=== PATIENT | female | born 1945 | race Caucasian/White ===

== ENCOUNTER 2018-08-12 09:54 | Inpatient (IN) ==
[2018-08-12] MEDS ORDERED: 0.9 % Sodium Chloride 500 ML IVC ONE ×2 (10:06→12:01)
--- NOTE | 2018-08-12 10:28 | Emergency Department Note ---
Disposition Clinical Impression: Weakness, Dehydration, Compression fx, thoracic spine, Fall Disposition: Admitted As Inpatient Condition: Fair Back Pain HPI - General Chief Complaint: ED Back Pain/Injury Stated Complaint: FELL, BACK & NECK PAIN Time Seen by Provider: 08/12/18 09:55 Source: patient Mode of arrival: EMS Limitations: no limitations Nursing Notes Reviewed: Yes Vital Signs Reviewed: Yes - History of Present Illness HPI Narrative: Patient reportedly fell this morning injuring her back head and neck. Upon EMSs arrival her blood pressure was low. She complains back and head pain. She was seen about a week ago in the emergency department and was restarted on his psych medicines. Pt Subjective Complaint: back pain, back injury, fall Onset (ago): Just [employer] Duration: constant Location: lumbar spine, thoracic spine, Other Quality: sharp Radiation: none Improves with: none Worsens with: movement Associated symptoms: Reports: weakness - Related Data Home Medications Medication Instructions Recorded Confirmed Aspirin 81 mg PO DAILY 05/29/15 08/12/18 Levothyroxine [Synthroid] 100 mcg PO 0630 05/29/15 08/12/18 Famotidine [Pepcid] 20 mg PO BID 08/08/18 08/12/18 Gabapentin [Neurontin] 800 mg PO TID 08/08/18 08/12/18 Glimepiride [Amaryl] 4 mg PO BID 08/08/18 08/12/18 Lisinopril [Zestril] 5 mg PO DAILY 08/08/18 08/12/18 Metoprolol Succinate 25 mg PO DAILY 08/08/18 08/12/18 metFORMIN [Glucophage] 1,000 mg PO BIDWM 08/08/18 08/12/18 Bydureon 2 mg SQ QWEEK 08/12/18 08/12/18 Insulin Glargine,Hum.rec.anlog 15 unit SQ HS 08/12/18 08/12/18 [Lantus Solostar] Meloxicam [Mobic] 7.5 mg PO DAILY 08/12/18 08/12/18 OLANZapine [Zyprexa] 15 mg PO DAILY 08/12/18 08/12/18 Venlafaxine HCl [Venlafaxine HCl 75 mg PO DAILY 08/12/18 08/12/18 ER] Previous Rx's Medication Instructions Recorded Mirtazapine [Remeron] 15 mg PO HS #30 tablet 03/31/16 Allergies Allergy/AdvReac Type Severity Reaction Status Date / Time Sulfa (Sulfonamide Allergy Hives Verified 04/11/16 15:37 Antibiotics) All systems ED: reviewed and negative except as stated. Review of Systems: As Per HPI Constitutional: Denies: fever, chills, weakness, weight change Eyes: Denies: eye pain, eye discharge, vision change ENT ED: Denies: ear pain, throat pain, dental pain, hearing loss, epistaxis, congestion, dysphagia Cardiovascular: Denies: chest pain, palpitations, dyspnea on exertion, edema, syncope Respiratory: Denies: cough, dyspnea, wheezes, hemoptysis, stridor Gastrointestinal: Denies: abdominal pain, nausea, vomiting, diarrhea, constipation, hematemesis, melena, hematochezia Genitourinary: Denies: dysuria, frequency, hematuria, discharge Musculoskeletal: Reports: as per HPI, back pain, neck pain Integumentary: Denies: rash, abrasion, lesions Neurological: Denies: headache, weakness, numbness, paresthesias, confusion, abnormal gait, vertigo Psychiatric: Denies: anxiety, depression, suicidal thoughts, homicidal thoughts, auditory hallucinations, visual hallucinations Endocrine: Denies: fatigue Hematological/Lymphatic: Denies: easy bleeding, easy bruising Allergic/Immunologic: Denies: facial swelling, urticaria Past Medical History - Past Medical History Attestation: Yes The following information was validated with the patient. Source: patient, nursing notes reviewed Medical history: Reports: coronary artery disease, diabetes, hyperlipidemia, hypertension, renal disease, thyroid disease Surgical history: Reports: breast surgery, cholecystectomy, hysterectomy, orthopedic, other (Neck surgery) Psychiatric history: Reports: anxiety, depression, previous psychiatric hospital ization - Social History Smoking Status: Never smoker Smokeless Tobacco Status: No Alcohol use: Reports: none Drug use: Reports: none Physical Exam - General Limitations: no limitations General appearance: alert, in no apparent distress - Head Head exam: atraumatic, normocephalic, normal inspection - Eye Eye exam: Present: normal appearance, PERRL, EOMI - ENT ENT exam: normal exam, normal oropharynx, mucous membranes moist - Neck Neck exam: Present: normal inspection, tenderness (Diffusely tender) - Chest Chest inspection: Present: normal inspection, symmetric chest wall rise - Respiratory Respiratory exam: Present: normal lung sounds bilaterally - Cardiovascular Cardiovascular exam: Present: regular rate, normal rhythm, normal heart sounds - Abdominal Exam Abdominal exam: Present: soft, Non-Tender - Extremities Exam Extremities exam: Present: normal inspection - Back Exam Back exam: Present: tenderness (Diffusely tender low back. Small abrasion is noted to the left scapular region) - Neurological Exam Neurological exam: Present: alert, oriented X3 - Psychiatric Psychiatric exam: Present: normal affect, normal mood - Skin Skin exam: Present: warm, dry, intact Course Vital Signs O2 Sat by Pulse Oximetry 95 08/12/18 09:55 Temperature 97.9 F 08/12/18 12:52 Pulse Rate 70 08/12/18 12:52 Respiratory Rate 16 08/12/18 12:52 Blood Pressure 81/43 08/12/18 12:52 O2 Sat by Pulse Oximetry 95 08/12/18 12:52 Oxygen Delivery Oxygen Delivery Nasal Cannula Back Pain/Injury - MDM Narrative Medical decision making narrative: I reviewed the patient's medication list Case was discussed with Dr. Darnell who is graciously accepted admission. - Lab Data Lab results reviewed: Yes I reviewed the patient's lab results. Result diagrams: 08/12/18 10:40 08/12/18 10:40 Lab Results 08/12/18 08/12/18 08/12/18 Range/Units 10:40 10:40 10:40 WBC 17.2 H (4.3-11.1) K/mcL RBC 4.35 (3.82-4.97) M/mcL Hgb 13.5 (11.5-15.4) g/dL Hct 41.8 (35.3-44.9) % MCV 96.1 (83.0-100.0) fL MCH 31.0 (28.0-33.3) pg MCHC 32.3 (31.6-35.5) g/dL RDW 12.7 (11.5-14.5) % Plt Count 308 (140-400) K/mcL MPV 10.1 (9.4-12.4) fL Immature Gran % 0.8 (0-4) % Seg Neutrophils % 80.9 % Lymphocytes % 8.5 % Monocytes % 8.3 % Eosinophils % 1.3 % Basophils % 0.2 % Neutrophils # 13.9 H (1.6-8.9) K/mcL Lymphocytes # 1.5 (0.6-4.6) K/mcL Monocytes # 1.4 H (0.0-1.3) K/mcL Eosinophils # 0.2 (0.0-0.6) K/mcL Basophils # 0.0 (0.0-0.2) K/mcL Clumped Platelets Few A (Not Present) ABG pH (7.32-7.45) pH Units ABG pCO2 (35-45) mmHg ABG pO2 (85-104) mmHg ABG HCO3 (21-27) mEq/L ABG Total CO2 (20-26) mEq/L ABG O2 Saturation (95-98) % ABG Base Excess (-2 to 3) mEq/L VBG pH VBG pCO2 VBG pO2 VBG HCO3 O2 Delivery Device Inspired O2 (1-15=lpm [id number]=%) Sodium 134 L (136-145) mEq/L Potassium 6.0 H (3.5-5.1) mEq/L Chloride 112 H (98-107) mEq/L Carbon Dioxide 10 L* (23-29) mEq/L BUN 49 H (8-23) mg/dL Creatinine 2.57 H (0.60-1.20) mg/dL Est GFR ( Amer) 22 L (> 60) Est GFR (Non-Af Amer) 18 L (> 60) BUN/Creatinine Ratio 19 (6-26) Glucose 101 (70-105) mg/dL Calculated Osmolality 291 (280-300) Lactic Acid 0.8 (0.5-2.2) mmol/L Calcium 8.4 L (8.6-10.3) mg/dL Total Bilirubin 0.3 (0.3-1.0) mg/dL AST 37 (13-39) Units/L ALT 24 (7-52) Units/L Alkaline Phosphatase 105 H (34-104) Units/L Troponin I < 0.03 (< 0.04) ng/mL Serum Total Protein 6.5 (6.4-8.9) g/dL Albumin 3.3 L (3.5-5.7) g/dL Globulin 3.2 (2.4-3.5) g/dL Albumin/Globulin Ratio 1.0 L (1.1-2.2) Urine Color (Yellow) Urine Clarity (Clear) Urine pH (5.0-8.0) pH Units Ur Specific [place] (1.010-1.025) Urine Protein (Neg-Trace) mg/dL Urine Glucose (UA) (Normal) mg/dL Urine Ketones (Negative) mg/dL Urine Blood (Negative) Urine Nitrite (Negative) Urine Bilirubin (Negative) Urine Urobilinogen (Normal) mg/dL Ur Leukocyte Esterase (Negative) Urine Microscopic WBC (0-3) per hpf Ur Squamous Epith Cells (None-Few) per lpf Urine Bacteria (None-Few) per hpf Hyaline Casts (None-Few) per lpf Granular Casts (None Seen) per lpf Urine Mucus (Few) Ur Culture Indicated? (NO) 08/12/18 08/12/18 08/12/18 Range/Units 10:45 10:53 11:50 WBC (4.3-11.1) K/mcL RBC (3.82-4.97) M/mcL Hgb (11.5-15.4) g/dL Hct (35.3-44.9) % MCV (83.0-100.0) fL MCH (28.0-33.3) pg MCHC (31.6-35.5) g/dL RDW (11.5-14.5) % Plt Count (140-400) K/mcL MPV (9.4-12.4) fL Immature Gran % (0-4) % Seg Neutrophils % % Lymphocytes % % Monocytes % % Eosinophils % % Basophils % % Neutrophils # (1.6-8.9) K/mcL Lymphocytes # (0.6-4.6) K/mcL Monocytes # (0.0-1.3) K/mcL Eosinophils # (0.0-0.6) K/mcL Basophils # (0.0-0.2) K/mcL Clumped Platelets (Not Present) ABG pH 7.26 L (7.32-7.45) pH Units ABG pCO2 39 (35-45) mmHg ABG pO2 90 (85-104) mmHg ABG HCO3 18 L (21-27) mEq/L ABG Total CO2 19 L (20-26) mEq/L ABG O2 Saturation 96 (95-98) % ABG Base Excess -9 L (-2 to 3) mEq/L VBG pH TNP VBG pCO2 TNP VBG pO2 TNP VBG HCO3 TNP O2 Delivery Device [place] Inspired O2 24.0 TNP (1-15=lpm [id number]=%) Sodium (136-145) mEq/L Potassium (3.5-5.1) mEq/L Chloride (98-107) mEq/L Carbon Dioxide (23-29) mEq/L BUN (8-23) mg/dL Creatinine (0.60-1.20) mg/dL Est GFR ( Amer) (> 60) Est GFR (Non-Af Amer) (> 60) BUN/Creatinine Ratio (6-26) Glucose (70-105) mg/dL Calculated Osmolality (280-300) Lactic Acid (0.5-2.2) mmol/L Calcium (8.6-10.3) mg/dL Total Bilirubin (0.3-1.0) mg/dL AST (13-39) Units/L ALT (7-52) Units/L Alkaline Phosphatase (34-104) Units/L Troponin I (< 0.04) ng/mL Serum Total Protein (6.4-8.9) g/dL Albumin (3.5-5.7) g/dL Globulin (2.4-3.5) g/dL Albumin/Globulin Ratio (1.1-2.2) Urine Color Yellow (Yellow) Urine Clarity Slightly Cloudy A (Clear) Urine pH 5.0 (5.0-8.0) pH Units Ur Specific [place] >= 1.030 H (1.010-1.025) Urine Protein 100 H (Neg-Trace) mg/dL Urine Glucose (UA) Normal (Normal) mg/dL Urine Ketones Trace H (Negative) mg/dL Urine Blood Negative (Negative) Urine Nitrite Negative (Negative) Urine Bilirubin Small H (Negative) Urine Urobilinogen Normal (Normal) mg/dL Ur Leukocyte Esterase Negative (Negative) Urine Microscopic WBC 0-3 (0-3) per hpf Ur Squamous Epith Cells Few (None-Few) per lpf Urine Bacteria Moderate H (None-Few) per hpf Hyaline Casts Moderate H (None-Few) per lpf Granular Casts Few H (None Seen) per lpf Urine Mucus Few (Few) Ur Culture Indicated? NO (NO) - Radiology Data Radiology results reviewed: Yes I reviewed the patient's radiology results. - EKG Data EKG attestation: Yes I reviewed and interpreted this EKG. EKG results narrative: EKG by my read shows a normal sinus rhythm without acute ST or T-wave changes. Rate is 68 bpm. NV interval 133 ms. QRS duration 94 ms. QT interval 408 QTc interval 426 ms R axis of 36 degrees.
[2018-08-12 10:51] LABS: Basophils % 0.2 %; Eosinophils # 0.2 K/mcL (0.0-0.6); Eosinophils % 1.3 %; Hematocrit 41.8 % (35.3-44.9); Hemoglobin 13.5 g/dL (11.5-15.4); Immature Granulocytes % 0.8 % (0-4); Lymphocytes # 1.5 K/mcL (0.6-4.6); Lymphocytes % 8.5 %; Mean Corpuscular HGB Conc 32.3 g/dL (31.6-35.5); Mean Corpuscular Volume 96.1 fL (83.0-100.0); Mean Platelet Volume 10.1 fL (9.4-12.4); Monocytes # 1.4 K/mcL (0.0-1.3); Monocytes % 8.3 %; Neutrophils # 13.9 K/mcL (1.6-8.9); Platelet Count 308 K/mcL (140-400); Red Blood Count 4.35 M/mcL (3.82-4.97); Red Cell Distribution Width 12.7 % (11.5-14.5); Segmented Neutrophils % 80.9 %
[2018-08-12 11:10] LABS: Platelet Clumps Few (Not Present)
[2018-08-12 11:22] LABS: Alanine Aminotransferase 24 Units/L (7-52); Albumin 3.3 g/dL (3.5-5.7); Alkaline Phosphatase 105 Units/L (34-104); Aspartate Amino Transferase 37 Units/L (13-39); BUN/Creatinine Ratio 19 (6-26); Bilirubin,Total 0.3 mg/dL (0.3-1.0); Blood Urea Nitrogen 49 mg/dL (8-23); Calcium 8.4 mg/dL (8.6-10.3); Carbon Dioxide 10 mEq/L (23-29); Chloride 112 mEq/L (98-107); Globulin 3.2 g/dL (2.4-3.5); Glucose 101 mg/dL (70-105); Osmolality,Calculated 291 (280-300); Sodium 134 mEq/L (136-145); Total Protein 6.5 g/dL (6.4-8.9); Troponin I < 0.03 ng/mL (< 0.04); eGFR For Non-African Americans 18 (> 60)
[2018-08-12 11:38] LABS: ABG HCO3 18 mEq/L (21-27); ABG PCO2 39 mmHg (35-45); ABG PH 7.26 pH Units (7.32-7.45); ABG PO2 90 mmHg (85-104)
[2018-08-12 11:43] LABS: ABG Base Excess -9 mEq/L (-2 to 3); ABG Oxygen Saturation 96 % (95-98); ABG TCO2 19 mEq/L (20-26)
[2018-08-12 11:58] LABS: Bilirubin,Urine Small (Negative); Blood,Urine Negative (Negative); Clarity,Urine Slightly Cloudy (Clear); Color,Urine Yellow (Yellow); Glucose,Urine (UA) Normal (Normal); Ketones,Urine Trace mg/dL (Negative); Leukocyte Esterase,Urine Negative (Negative); Nitrite,Urine Negative (Negative); Protein,Urine 100 mg/dL (Neg-Trace); Specific Gravity,Urine >= 1.030 (1.010-1.025); Urobilinogen,Urine Normal (Normal)
[2018-08-12 12:07] LABS: Granular Casts,Urine Few per lpf (None Seen); Mucus,Urine Few (Few); Squamous Epithelial Cell,Urine Few per lpf (None-Few); WBC,Urine 0-3 per hpf (0-3)
[2018-08-12 12:08] LABS: Bacteria,Urine Moderate per hpf (None-Few); Hyaline Casts,Urine Moderate per lpf (None-Few)
[2018-08-12] MEDS ORDERED: Naloxone 0.4 MG/ML INJ IVP PRN (12:52)
[2018-08-12] MEDS ORDERED: 0.9 % Sodium Chloride 1,000 ML IVC SCH (12:52)
[2018-08-12] MEDS: Gabapentin 400 MG CAPSULE PO SCH ×2 (14:48→20:42)
--- NOTE | 2018-08-12 14:55 | Electrocardiograph Report ---
[address] [address] Test Date: 2018-08-12 Pat Name: Aubree Fraire Department: [id number] Room: [facility] Gender: F Supervisor Intelligence Analyst: [id number] : 1945 Requested By: Alan Call Order Number: [id number] Reading MD: Malcolm Luis Measurements Intervals [place] Rate: 68 P: 0 CT: 133 QRS: 36 QRSD: 94 T: 34 QT: 408 QTc: 426 Interpretive Statements SINUS RHYTHM Electronically Signed On 08-12-2018 14:53:23 EST by Malcolm Luis
[2018-08-12] MEDS ORDERED: *HR* Dextrose 50 % in Water (Syg) 50 ML SYRINGE IVP PRN (16:41)
[2018-08-12] MEDS ORDERED: Dextrose Gel 15 GM/37.5 ML TUBE PO PRN ×2 (16:41)
[2018-08-12] MEDS ORDERED: D5% in Water 1,000 ML IVC PRN (16:41)
[2018-08-12] MEDS: Insulin LISPRO 300 UNITS/3 ML VIAL SQ SCH ×2 (16:56→20:43)
[2018-08-12] MEDS ORDERED: *HR* Metformin 500 MG TABLET PO SCH (17:00)
--- NOTE | 2018-08-12 19:19 | Internal Med History&Physical ---
Date of Encounter: 08/12/18 Time of Encounter: 17:30 Assessment and Plan (1) Acute renal failure Current visit: Yes Status: Acute Suspect multifactorial etiology including dehydration, NSAID use, and lisinopril use. IV fluids will be given, lisinopril and Mobic discontinued, and follow-up labs monitored. Qualifiers: Acute renal failure type: unspecified Qualified Code(s): N17.9 - Acute kidney failure, unspecified (2) Hyperkalemia Current visit: Yes Status: Acute Hold lisinopril and NSAIDs. Recheck labs. (3) Neutrophilic leukocytosis Current visit: Yes Status: Acute Etiology not obvious. She will be given a dose of Rocephin and Zithromax. Follow-up labs in a.m. (4) DM (diabetes mellitus), type 2 Current visit: No Status: Chronic Check hemoglobin A1c in a.m. Qualifiers: Diabetes mellitus counter supervisor insulin use: without fdc use Diabetes mellitus complication status: without complication Qualified Code(s): E11.9 - Type 2 diabetes mellitus without complications (5) Hypothyroidism Current visit: No Status: Chronic Check TSH in a.m. Qualifiers: Hypothyroidism type: unspecified Qualified Code(s): E03.9 - Hypothyroidism, unspecified (6) Depression, major, recurrent, severe with psychosis Current visit: No Status: Chronic Continue Effexor and Zyprexa (7) Compression fx, thoracic spine Current visit: Yes Status: Acute Lidoderm and BenGay will be ordered topically. Scheduled Tylenol will be given. Ultram will be available on a prn basis. Qualifiers: Encounter type: initial encounter Fracture type: closed Qualified Code(s): S22.000A - Wedge compression fracture of unspecified thoracic vertebra, initial encounter for closed fracture (8) Fall Current visit: Yes Status: Acute PT and OT evaluation will be done Qualifiers: Encounter type: initial encounter Qualified Code(s): W19.XXXA - Unspecified fall, initial encounter Internal Medicine - H&P: HPI Chief complaint: Fall, back pain Admitted From: Emergency Dept Plans for Post Hospital Care: Home History of present illness: Ms. Fraire is a 73 year old female who came to emergency room stating she had sustained a fall at home. She reports she tripped and hit her head on a cabinet and slid to the floor. She had immediate pain in her back. She was brought by EMS to emergency room. X-ray showed traumatic compression fracture of T12 involving the superior endplate resulting in approximately 10% of anterior height loss. She also had leukocytosis with left shift, hyperkalemia, and acute renal failure. She was admitted to [facility] for ongoing care needs. She states she has fallen approximately 10 times in the last month at home due to weakness and balance loss. She denies orthostatic symptoms when arising from a seated position. She states she typically ambulates with a walker. She also reports frequent chills and sweats over the last 2 years. Past Med Surg Social Fam HX - Past Medical History Medical history: coronary artery disease, diabetes, hyperlipidemia, hypertension, renal disease, thyroid disease Additional medical history: CHRONIC INSOMNIA, FATIGURE, PE, DVT,FAILURE TO THRIVE. Psychiatric history: anxiety, depression, previous psychiatric hospitalization - Past Surgical History Surgical History: breast surgery, cholecystectomy, hysterectomy, orthopedic, other (Neck surgery) Additional surgical history: breast. neck - Social History Smoking Status: Never smoker Smokeless Tobacco Status: No Alcohol use: none Drug use: none - Family History Mother Family Member Ethnicity: Non- Living Status: Hx Family Cancer: Yes (breast ca) Internal Medicine - H&P: Meds Aspirin 81 mg PO DAILY 05/29/15 [History] Levothyroxine [Synthroid] 100 mcg PO 0630 05/29/15 [History] Mirtazapine [Remeron] 15 mg PO HS #30 tablet 03/31/16 [Rx] Famotidine [Pepcid] 20 mg PO BID 08/08/18 [History] Gabapentin [Neurontin] 800 mg PO TID 08/08/18 [History] Glimepiride [Amaryl] 4 mg PO BID 08/08/18 [History] Lisinopril [Zestril] 5 mg PO DAILY 08/08/18 [History] Metoprolol Succinate 25 mg PO DAILY 08/08/18 [History] metFORMIN [Glucophage] 1,000 mg PO BIDWM 08/08/18 [History] Bydureon 2 mg SQ QWEEK 08/12/18 [History] Insulin Glargine,Hum.rec.anlog [Lantus Solostar] 15 unit SQ HS 08/12/18 [History] Meloxicam [Mobic] 7.5 mg PO DAILY 08/12/18 [History] OLANZapine [Zyprexa] 15 mg PO DAILY 08/12/18 [History] Venlafaxine HCl [Venlafaxine HCl ER] 75 mg PO DAILY 08/12/18 [History] Allergy/AdvReac Type Severity Reaction Status Date / Time Sulfa (Sulfonamide Allergy Hives Verified 04/11/16 15:37 Antibiotics) All Systems PM: A 10-system review of systems was performed and is negative for pertinent findings except as documented above in the HPI. Review of systems: Gen.: Her weight has increased slightly from 92 kg on 03/23/2016 to admission weight of 94.347 kg at present. Cardiovascular: She has history of hypertension. She thinks she has superficial venous thrombosis in the past but cannot clearly state how recently. She had dobutamine stress echo 01/17/2017 which showed normal LVEF 60-65% with no evidence of ischemia. Respiratory: She smoked from age [age] never up to 1 pack per day. She does not have known chronic lung disease. GI: She has occasional GERD. She has had cholecystectomy. She denies disorders of her liver or exocrine pancreas. : She denies hematuria dysuria or kidney stones Neurologic: She states she has had numerous episodes lightheadedness occasionally over the past few months. She has not had complete syncopal epi sodes. She denies large distribution strokes or seizures. Endocrine: She has been diagnosed with DM 2 but cannot state when the diagnosis was made. She has history of hyperlipidemia and hypothyroidism Hematology/oncology: She reports she was diagnosed with uterine cancer within the past year. She states she was treated at [facility] but does not recall what treatment was done. She denies anemia. Psychiatric: She has history of anxiety and depression. She received ECT at [place] several years ago. Musk skeletal: She states she has DJD. She is uncertain if she has history of gout. - Constitutional Vitals: Temp Pulse Resp BP Pulse Ox 97.9 F 70 16 81/43 95 08/12/18 12:52 08/12/18 12:52 08/12/18 12:52 08/12/18 12:52 08/12/18 12:52 Exam: Gen.: She is a well-developed well-nourished female resting comfortably in bed who appears in no acute distress HEENT: Head is atraumatic and normocephalic. Eyes: EOMI. There is no scleral icterus. Mouth: Mucosa is moist. Neck: Supple and nontender. There is no thyromegaly or adenopathy noted. Heart: Regular without murmurs gallops or ectopics Lungs: No wheezes or crackles are heard. Abdomen: Her abdomen is tympanic to percussion. Bowel sounds are present. There is minimal tenderness to palpation. No masses or guarding are noted. Extremities: There is no cyanosis edema or clubbing noted. Trace to 1+ palpable bilaterally. Neurologic: Mental status: She is talkative and a fair historian. She does not remember several details of her history. Cranial nerves: Smile is symmetric. Forehead wrinkles bilaterally. Tongue protrudes midline. EOMI. Motor: There is no pronator drift. Cerebellar: Finger to nose is intact bilaterally. Skin: Warm and dry Internal Med - H&P Results - Labs CBC & Chem 7: 08/12/18 10:40 08/12/18 10:40 Labs: Short CBC 08/12/18 Range/Units 10:40 WBC 17.2 H (4.3-11.1) K/mcL Hgb 13.5 (11.5-15.4) g/dL Hct 41.8 (35.3-44.9) % Plt Count 308 (140-400) K/mcL Neutrophils # 13.9 H (1.6-8.9) K/mcL BMP 08/12/18 10:40 Sodium 134 L Potassium 6.0 H Chloride 112 H Carbon Dioxide 10 L* BUN 49 H Creatinine 2.57 H Glucose 101 Calcium 8.4 L Cardiac Enzymes 08/12/18 08/12/18 Range/Units 10:40 13:10 Troponin I < 0.03 < 0.03 (< 0.04) ng/mL Liver Function 08/12/18 Range/Units 10:40 Total Bilirubin 0.3 (0.3-1.0) mg/dL AST 37 (13-39) Units/L ALT 24 (7-52) Units/L Alkaline Phosphatase 105 H (34-104) Units/L Albumin 3.3 L (3.5-5.7) g/dL Urine 12/05/18 Range/Units 11:50 Urine Color Yellow (Yellow) Urine Clarity Slightly Cloudy A (Clear) Urine pH 5.0 (5.0-8.0) pH Units Ur Specific [place] >= 1.030 H (1.010-1.025) Urine Protein 100 H (Neg-Trace) mg/dL Urine Glucose (UA) Normal (Normal) mg/dL - ABG Interpretation ABG results: 08/12/18 08/12/18 10:45 10:53 ABG pH 7.26 L ABG pCO2 39 ABG pO2 90 ABG HCO3 18 L ABG Total CO2 19 L ABG O2 Saturation 96 ABG Base Excess -9 L VBG pH TNP VBG pCO2 TNP VBG pO2 TNP VBG HCO3 TNP - Impressions ITS Impressions Cervical Spine CT 08/12/18 10:06 IMPRESSION: No acute abnormality of the cervical spine. Postoperative changes and chronic changes as described D/ / Ebenezer Ellis MD / Ebenezer Ellis MD Interpreting Provider: Ebenezer Ellis MD Chest X-Ray 08/12/18 10:06 IMPRESSION: 1. Left base airspace opacity, favored to be atelectasis, with small left pleural effusion. D/ / Nathan Palmer MD / Nathan Palmer MD Interpreting Provider: Nathan Palmer MD Head CT 08/12/18 10:06 IMPRESSION: No acute intracranial abnormality. D/ / Erasmo Rueda MD / Erasmo Rueda MD Interpreting Provider: Erasmo Rueda MD Lumbar Spine CT 08/12/18 10:14 IMPRESSION: Suspected acute fracture involving the superior endplate of T12 with minimal depression noted within the mid and anterior aspect. No retropulsion into the spinal canal identified. No lumbar spine fracture. Multilevel degenerative changes. D/ / Darnell Byrd MD / Darnell Byrd MD Interpreting Provider: Darnell Byrd MD Thoracic Spine CT 08/12/18 10:14 IMPRESSION: Traumatic compression fracture of T12 involving the superior endplate results in approximately 10% of anterior height loss. No evidence of central canal bony retropulsion. D/ / 08/12/2018 11:47:27 Nathan Palmer MD / wicho Interpreting Provider: Nathan Palmer MD
[2018-08-12] MEDS ORDERED: Azithromycin 500 MG in D5% in Water 250 ML IVPB ONE (19:34)
[2018-08-12 20:00] LABS: Calcium 7.8 mg/dL (8.6-10.3)
[2018-08-12] MEDS ORDERED: cefTRIAXone 1,000 MG in Water for inj. (sterile) 20 ML 10 ML IVP SCH (20:00)
[2018-08-12] MEDS: Lactobacillus 1 EACH CAP.SPRINK PO SCH (20:42)
[2018-08-12] MEDS: Mirtazapine 15 MG TABLET PO SCH (20:42)
[2018-08-12] MEDS: Insulin DETEMIR 100 UNIT/ML X5UNITS SQ SCH (20:44)
[2018-08-12] MEDS ORDERED: *HR* Glimepiride 2 MG TABLET PO SCH ×2 (21:00)
[2018-08-13] MEDS: traMADol 50 MG TABLET PO PRN ×3 (03:29→20:48)
[2018-08-13 05:20] LABS: Basophils % 0.2 %; Eosinophils # 0.5 K/mcL (0.0-0.6); Eosinophils % 5.4 %; Hemoglobin 12.6 g/dL (11.5-15.4); Immature Granulocytes % 0.4 % (0-4); Lymphocytes # 1.8 K/mcL (0.6-4.6); Lymphocytes % 18.3 %; Mean Corpuscular HGB Conc 31.5 g/dL (31.6-35.5); Mean Corpuscular Hemoglobin 30.6 pg (28.0-33.3); Mean Corpuscular Volume 97.1 fL (83.0-100.0); Monocytes % 10.1 %; Neutrophils # 6.6 K/mcL (1.6-8.9); Platelet Count 302 K/mcL (140-400); Red Blood Count 4.12 M/mcL (3.82-4.97); Segmented Neutrophils % 65.6 %
[2018-08-13 05:45] LABS: Calcium 8.1 mg/dL (8.6-10.3); Potassium 4.8 mEq/L (3.5-5.1)
[2018-08-13] MEDS: Insulin LISPRO 300 UNITS/3 ML VIAL SQ SCH ×4 (08:00→20:50)
[2018-08-13] MEDS: Lactobacillus 1 EACH CAP.SPRINK PO SCH ×2 (08:32→20:48)
[2018-08-13] MEDS: Gabapentin 400 MG CAPSULE PO SCH ×3 (08:34→20:48)
[2018-08-13] MEDS: OLANZapine 5 MG TAB.RAPDIS PO SCH (08:34)
[2018-08-13] MEDS: Venlafaxine XR (24 HR) 37.5 MG CAP.ER.24H PO SCH (08:35)
[2018-08-13] MEDS ORDERED: Metoprolol XL (24 HR) Succ 25 MG TAB.ER.24H PO SCH (09:00)
[2018-08-13] MEDS ORDERED: Aspirin 81 MG TAB.CHEW PO SCH (09:00)
--- NOTE | 2018-08-13 10:08 | Internal Med Progress Note ---
Date of Encounter: 08/13/18 Time of Encounter: 09:55 - Assessment and plan (1) Acute renal failure Current Visit: Yes Status: Acute Assessment and plan: August 13. Creatinine significantly improved to 1.56. Continue present r egimen. Recheck labs in a.m. Qualifiers: Acute renal failure type: unspecified Qualified Code(s): N17.9 - Acute kidney failure, unspecified (2) Hyperkalemia Current Visit: Yes Status: Resolved Assessment and plan: August 13. Resolved. Continue present regimen and monitor labs. (3) Neutrophilic leukocytosis Current Visit: Yes Status: Acute Assessment and plan: August 13. Resolved. Continue Rocephin and monitor. (4) DM (diabetes mellitus), type 2 Current Visit: No Status: Chronic Assessment and plan: August 13. Hemoglobin A1c pending. Continue Levemir but remain off Glucophage and Amaryl. Continue Accu-Cheks with SSI. Qualifiers: Diabetes mellitus conditioning room worker insulin use: without conditioning room worker use Diabetes mellitus complication status: without complication Qualified Code(s): E11.9 - Type 2 diabetes mellitus without complications (5) Hypothyroidism Current Visit: No Status: Chronic Assessment and plan: August 13. TSH normal at 0.381. Continue present dose Synthroid. Qualifiers: Hypothyroidism type: unspecified Qualified Code(s): E03.9 - Hypothyroidism, unspecified (6) Depression, major, recurrent, severe with psychosis Current Visit: No Status: Chronic Assessment and plan: August 13. Continue venlafaxine and Zyprexa (7) Compression fx, thoracic spine Current Visit: Yes Status: Acute Assessment and plan: August 13. Continue present regimen. Qualifiers: Encounter type: initial encounter Fracture type: closed Qualified Cod e(s): S22.000A - Wedge compression fracture of unspecified thoracic vertebra, initial encounter for closed fracture (8) Fall Current Visit: Yes Status: Acute Assessment and plan: August 13. PT and OT evaluations have been ordered. Qualifiers: Encounter type: initial encounter Qualified Code(s): W19.XXXA - Unspecified fall, initial encounter - Subjective Interval history: August 13. She has no new complaints. She reports she still has pain in her low back and head. - Constitutional Vitals: Temp Pulse Resp BP Pulse Ox 99.2 F 80 28 98/49 96 08/13/18 08:02 08/13/18 08:02 08/13/18 08:02 08/13/18 08:02 08/13/18 08:02 Exam: She is lying in bed and appears in minimal distress. Heart is regular without murmurs gallops or ectopics. Lungs are clear anteriorly. Extremities show no edema. I reviewed her medications and lab results. Internal Medicine: Result - Labs CBC & Chem 7: 08/13/18 04:55 08/13/18 04:55 Labs: Short CBC 08/12/18 08/13/18 Range/Units 10:40 04:55 WBC 17.2 H 10.0 (4.3-11.1) K/mcL Hgb 13.5 12.6 (11.5-15.4) g/dL Hct 41.8 40.0 (35.3-44.9) % Plt Count 308 302 (140-400) K/mcL Neutrophils # 13.9 H 6.6 (1.6-8.9) K/mcL BMP 08/12/18 08/12/18 08/13/18 10:40 19:13 04:55 Sodium 134 L 134 L 136 Potassium 6.0 H 5.0 4.8 Chloride 112 H 113 H 111 H Carbon Dioxide 10 L* 12 L 18 L BUN 49 H 46 H 35 H Creatinine 2.57 H 2.11 H 1.56 H Glucose 101 132 H 90 Calcium 8.4 L 7.8 L 8.1 L Cardiac Enzymes 08/12/18 08/12/18 08/12/18 Range/Units 10:40 13:10 19:13 Troponin I < 0.03 < 0.03 < 0.03 (< 0.04) ng/mL 08/13/18 Range/Units 04:55 Troponin I < 0.03 (< 0.04) ng/mL Liver Function 08/12/18 Range/Units 10:40 Total Bilirubin 0.3 (0.3-1.0) mg/dL AST 37 (13-39) Units/L ALT 24 (7-52) Units/L Alkaline Phosphatase 105 H (34-104) Units/L Albumin 3.3 L (3.5-5.7) g/dL Urine 08/12/18 Range/Units 11:50 Urine Color Yellow (Yellow) Urine Clarity Slightly Cloudy A (Clear) Urine pH 5.0 (5.0-8.0) pH Units Ur Specific Benson >= 1.030 H (1.010-1.025) Urine Protein 100 H (Neg-Trace) mg/dL Urine Glucose (UA) Normal (Normal) mg/dL - ABG Interpretation ABG results: ABG ABG pH 7.26 pH Units (7.32-7.45) L 08/12/18 10:45 ABG pCO2 39 mmHg (35-45) 08/12/18 10:45 ABG pO2 90 mmHg (85-104) 08/12/18 10:45 ABG O2 Saturation 96 % (95-98) 08/12/18 10:45 - Impressions Impressions Cervical Spine CT 08/12/18 10:06 IMPRESSION: No acute abnormality of the cervical spine. Postoperative changes and chronic changes as described D/ / Ebenezer Ellis MD / Ebenezer Ellis MD Interpreting Provider: Ebenezer Ellis MD Chest X-Ray 08/12/18 10:06 IMPRESSION: 1. Left base airspace opacity, favored to be atelectasis, with small left pleural effusion. D/ / Nathan Palmer MD / Nathan Palmer MD Interpreting Provider: Nathan Palmer MD Head CT 08/12/18 10:06 IMPRESSION: No acute intracranial abnormality. D/ / Erasmo Rueda MD / Erasmo Rueda MD Interpreting Provider: Erasmo Rueda MD Lumbar Spine CT 08/12/18 10:14 IMPRESSION: Suspected acute fracture involving the superior endplate of T12 with minimal depression noted within the mid and anterior aspect. No retropulsion into the spinal canal identified. No lumbar spine fracture. Multilevel degenerative changes. D/ / Darnell Byrd MD / Darnell Byrd MD Interpreting Provider: Darnell Byrd MD Thoracic Spine CT 08/12/18 10:14 IMPRESSION: Traumatic compression fracture of T12 involving the superior endplate results in approximately 10% of anterior height loss. No evidence of central canal bony retropulsion. D/ / 08/12/2018 11:47:27 Nathan Palmer MD / wicho Interpreting Provider: Nathan Palmer MD Consult Discharge Plan - Plan Referrals: Morena Willams, FOAM RUBBER MOLDER [Primary Care Provider] - 1 week
[2018-08-13] MEDS: Methyl Salicylate/Menthol 28 GM TUBE TP SCH (10:33)
[2018-08-13 11:00] LABS: Estimated Average Glucose 174 mg/dl; Hemoglobin A1C 7.7 %
[2018-08-13] MEDS ORDERED: cefTRIAXone 1,000 MG in Water for inj. (sterile) 20 ML 10 ML IVP SCH (20:00)
[2018-08-13] MEDS: Insulin DETEMIR 100 UNIT/ML X5UNITS SQ SCH (20:48)
[2018-08-13] MEDS: Mirtazapine 15 MG TABLET PO SCH (20:48)
[2018-08-14] MEDS: traMADol 50 MG TABLET PO PRN ×4 (04:23→20:32)
[2018-08-14 06:24] LABS: Basophils % 0.4 %; Eosinophils # 0.7 K/mcL (0.0-0.6); Eosinophils % 7.4 %; Hematocrit 40.1 % (35.3-44.9); Hemoglobin 13.1 g/dL (11.5-15.4); Immature Granulocytes % 0.3 % (0-4); Lymphocytes # 2.2 K/mcL (0.6-4.6); Lymphocytes % 22.4 %; Mean Corpuscular HGB Conc 32.7 g/dL (31.6-35.5); Mean Corpuscular Hemoglobin 31.4 pg (28.0-33.3); Mean Corpuscular Volume 96.2 fL (83.0-100.0); Mean Platelet Volume 9.7 fL (9.4-12.4); Monocytes # 1.1 K/mcL (0.0-1.3); Monocytes % 10.6 %; Neutrophils # 5.9 K/mcL (1.6-8.9); Platelet Count 318 K/mcL (140-400); Red Blood Count 4.17 M/mcL (3.82-4.97); Red Cell Distribution Width 12.7 % (11.5-14.5); Segmented Neutrophils % 58.9 %
[2018-08-14 06:43] LABS: Potassium 4.9 mEq/L (3.5-5.1)
[2018-08-14 06:44] LABS: Calcium 8.7 mg/dL (8.6-10.3)
[2018-08-14] MEDS: Insulin LISPRO 300 UNITS/3 ML VIAL SQ SCH ×4 (07:44→20:33)
[2018-08-14] MEDS: OLANZapine 5 MG TAB.RAPDIS PO SCH (08:03)
[2018-08-14] MEDS: Venlafaxine XR (24 HR) 37.5 MG CAP.ER.24H PO SCH (08:04)
[2018-08-14] MEDS: Gabapentin 400 MG CAPSULE PO SCH ×3 (08:05→20:32)
[2018-08-14] MEDS: Lactobacillus 1 EACH CAP.SPRINK PO SCH (08:05)
--- NOTE | 2018-08-14 11:49 | Internal Med Progress Note ---
Date of Encounter: 08/14/18 Time of Encounter: 11:40 - Assessment and plan (1) Acute renal failure Current Visit: Yes Status: Acute Assessment and plan: August 13. Creatinine significantly improved to 1.56. Continue present r egimen. Recheck labs in a.m. August 14. Resolved. Creatinine has decreased to 1.10. Discontinue IV fluids. Qualifiers: Acute renal failure type: unspecified Qualified Code(s): N17.9 - Acute kidney failure, unspecified (2) Hyperkalemia Current Visit: Yes Status: Resolved Assessment and plan: August 13. Resolved. Continue present regimen and monitor labs. (3) Neutrophilic leukocytosis Current Visit: Yes Status: Acute Assessment and plan: August 13. Resolved. Continue Rocephin and monitor. August 14. Remains resolved. Discontinue Rocephin. (4) DM (diabetes mellitus), type 2 Current Visit: No Status: Chronic Assessment and plan: August 13. Hemoglobin A1c pending. Continue Levemir but remain off Glucophage and Amaryl. Continue Accu-Cheks with SSI. August 14. Hemoglobin A1c 7.7%. Blood sugars are satisfactory. Continue Leve delmy and Accu-Cheks with SSI. Remain off Glucophage and Amaryl. Qualifiers: Diabetes mellitus fpc insulin use: without fpc use Diabetes mellitus complication status: without complication Qualified Code(s): E11.9 - Type 2 diabetes mellitus without complications (5) Hypothyroidism Current Visit: No Status: Chronic Assessment and plan: August 13. TSH normal at 0.381. Continue present dose Synthroid. Qualifiers: Hypothyroidism type: unspecified Qualified Code(s): E03.9 - Hypothyroidism, unspecified (6) Depression, major, recurrent, severe with psychosis Current Visit: No Status: Chronic Assessment and plan: August 13. Continue venlafaxine and Zyprexa (7) Compression fx, thoracic spine Current Visit: Yes Status: Acute Assessment and plan: August 13. Continue present regimen. August 14. Pain is inadequately controlled and interfering with therapy intervention. Continue scheduled Tylenol. Add low-dose Duragesic patch. Continue Ultram as needed. Qualifiers: Encounter type: initial encounter Fracture type: closed Qualified Code(s): S22.000A - Wedge compression fracture of unspecified thoracic vertebra, initial encounter for closed fracture (8) Fall Current Visit: Yes Status: Acute Assessment and plan: August 13. PT and OT evaluations have been ordered. August 14. Continue therapy intervention. Anticipate discharge to local SNF for ongoing care needs tomorrow. Qualifiers: Encounter type: initial encounter Qualified Code(s): W19.XXXA - Unspecified fall, initial encounter - Subjective Interval history: August 13. She has no new complaints. She reports she still has pain in her low back and head. August 14. She has no new complaints. She reports her low back pain is unchanged. - Constitutional Vitals: Temp Pulse Resp BP Pulse Ox 99.2 F 84 18 134/77 93 08/14/18 10:48 08/14/18 10:48 08/14/18 10:48 08/14/18 10:48 08/14/18 10:48 Exam: She is lying in bed and appears in mild pain on movement. Her affect is overall cheerful. I reviewed her medications and lab results. Internal Medicine: Result - Labs CBC & Chem 7: 08/14/18 05:39 08/14/18 05:39 Labs: Short CBC 08/14/18 Range/Units 05:39 WBC 10.0 (4.3-11.1) K/mcL Hgb 13.1 (11.5-15.4) g/dL Hct 40.1 (35.3-44.9) % Plt Count 318 (140-400) K/mcL Neutrophils # 5.9 (1.6-8.9) K/mcL BMP 08/14/18 05:39 Sodium 133 L Potassium 4.9 Chloride 105 Carbon Dioxide 23 BUN 22 Creatinine 1.10 Glucose 148 H Calcium 8.7 - ABG Interpretation ABG results: ABG ABG pH 7.26 pH Units (7.32-7.45) L 08/12/18 10:45 ABG pCO2 39 mmHg (35-45) 08/12/18 10:45 ABG pO2 90 mmHg (85-104) 08/12/18 10:45 ABG O2 Saturation 96 % (95-98) 08/12/18 10:45 - Impressions Impressions Thoracic Spine CT 08/12/18 10:14 IMPRESSION: Traumatic compression fracture of T12 involving the superior endplate results in approximately 10% of anterior height loss. No evidence of central canal bony retropulsion. D/ / 08/12/2018 11:47:27 Nathan Palmer MD / earjay Interpreting Provider: Nathan Palmer MD Consult Discharge Plan - Plan Referrals: Morena Willams, FEDERAL LAW CLERK [Primary Care Provider] - 1 week
[2018-08-14] MEDS ORDERED: *HR* FentaNYL PATCH 12 MCG PATCH TD SCH (12:00)
[2018-08-14] MEDS: Methyl Salicylate/Menthol 28 GM TUBE TP SCH (12:49)
[2018-08-14] MEDS: Mirtazapine 15 MG TABLET PO SCH (20:32)
[2018-08-14] MEDS: Insulin DETEMIR 100 UNIT/ML X5UNITS SQ SCH (20:33)
[2018-08-15] MEDS: traMADol 50 MG TABLET PO PRN ×2 (04:00→08:07)
[2018-08-15 06:44] VITALS: BP 121/70
[2018-08-15] MEDS ORDERED: MOM Conc 10 ML UD.LIQ PO SCH (08:00)
[2018-08-15] MEDS: Gabapentin 400 MG CAPSULE PO SCH (08:06)
[2018-08-15] MEDS: Insulin LISPRO 300 UNITS/3 ML VIAL SQ SCH ×2 (08:06→11:53)
[2018-08-15] MEDS: OLANZapine 5 MG TAB.RAPDIS PO SCH (08:07)
[2018-08-15] MEDS: Methyl Salicylate/Menthol 28 GM TUBE TP SCH (08:08)
[2018-08-15] MEDS: Venlafaxine XR (24 HR) 37.5 MG CAP.ER.24H PO SCH (08:08)
--- NOTE | 2018-08-15 08:46 | Discharge Summary ---
Orders not resulted at time of discharge: Pending orders 08/12/18 10:40 Culture,Blood [BC] Stat 08/12/18 17:51 Basic Metabolic Panel Stat Date of Encounter: 08/15/18 Time of Encounter: 08:30 - Discharge Diagnosis (1) Acute renal failure Priority: Primary Status: Resolved Qualifiers: Acute renal failure type: unspecified Qualified Code(s): N17.9 - Acute kidney failure, unspecified (2) Compression fx, thoracic spine Priority: Secondary Status: Acute Qualifiers: Encounter type: initial encounter Fracture type: closed Qualified Code(s): S22.000A - Wedge compression fracture of unspecified thoracic vertebra, initial encounter for closed fracture (3) Hyperkalemia Priority: Secondary Status: Resolved (4) Neutrophilic leukocytosis Priority: Secondary Status: Resolved (5) DM (diabetes mellitus), type 2 Priority: Secondary Status: Chronic Qualifiers: Diabetes mellitus meterman insulin use: without senior care use Diabetes mellitus complication status: without complication Qualified Code(s): E11.9 - Type 2 diabetes mellitus without complications (6) Hypothyroidism Priority: Secondary Status: Chronic Qualifiers: Hypothyroidism type: unspecified Qualified Code(s): E03.9 - Hypothyroidism, unspecified (7) Depression, major, recurrent, severe with psychosis Priority: Secondary Status: Chronic (8) Fall Priority: Secondary Status: Acute Qualifiers: Encounter type: initial encounter Qualified Code(s): W19.XXXA - Unspecified fall, initial encounter Hospital course: Ms. Fraire is a 73 year old female who came to emergency room stating she had sustained a fall at home. She reports she tripped and hit her head on a cabinet and slid to the floor. She had immediate pain in her back. She was brought by EMS to emergency room. X-ray showed traumatic compression fracture of T12 involving the superior endplate resulting in approximately 10% of anterior height loss. She also had leukocytosis with left shift, hyperkalemia, and acute renal failure. She was admitted to [facility] floor for ongoing care needs. Initial orders were written by the emergency room physician. I saw her on August 12 and performed a history and physical. NSAIDs and lisinopril were discontinued. IV fluids were given and azotemia resolved with BUN and creatinine decreasing to 22 and 1.10 respectively by August 14. She had adequate oral food and fluid intake. Hyperkalemia normalized. She was given 2 doses of IV Rocephin and a dose of IV Zithromax. Neutrophilic leukocytosis resolved and did not recur. She will not continue antibiotics at discharge. The etiology of the leukocytosis and left shift was not determined with certainty. Hemoglobin A1c returned slightly elevated at 7.7%. She had hypoglycemia so Amaryl and metformin were held. Blood sugars were well controlled on Lantus/Levemir. She will continue this regimen at the [facility]. TSH returned normal at 0.381. Present dose Synthroid will be continued. She was started on BenGay and Lidoderm patch locally for the T12 compression fracture. Duragesic patch was added. She will continue this regimen at the [facility]. PT and OT evaluations were done and she will continue therapy at the [facility]. On August 15 arrangements were complete for her to be discharged to [facility] for ongoing care needs. She will follow with me there. - Time Spent with Patient Total time spent providing and/or coordinating discharge services: - Discharge Medications Prescriptions: FentaNYL PATCH [Duragesic] 25 mcg TD Q72H 30 Days #10 patch.td72 Tramadol HCl [Ultram] 50 mg PO Q4H PRN 7 Days #42 tab PRN Reason: Pain Home Medications: Levothyroxine [Synthroid] 100 mcg PO 0630 05/29/15 [History] Mirtazapine [Remeron] 15 mg PO HS #30 tablet 03/31/16 [Rx] Gabapentin [Neurontin] 800 mg PO TID 08/08/18 [History] Bydureon 2 mg SQ QWEEK 08/12/18 [History] Insulin Glargine,Hum.rec.anlog [Lantus Solostar] 15 unit SQ HS 08/12/18 [History] OLANZapine [Zyprexa] 15 mg PO DAILY 08/12/18 [History] Venlafaxine HCl [Venlafaxine HCl ER] 75 mg PO DAILY 08/12/18 [History] Acetaminophen [Tylenol] 500 mg PO Q4HWA tablet 08/15/18 [Rx] FentaNYL PATCH [Duragesic] 25 mcg TD Q72H 30 Days #10 patch.td72 08/15/18 [Rx] Lidocaine Patch [Lidoderm 5% patch] 1 each TP DAILY 30 Days adh..patch 08/15/18 [Rx] Methyl Salicylate/Menthol [Bengay] 1 appl TP DAILY 30 Days tube 08/15/18 [Rx] Tramadol HCl [Ultram] 50 mg PO Q4H PRN 7 Days #42 tab 08/15/18 [Rx] Allergies/Adverse Reactions: Allergy/AdvReac Type Severity Reaction Status Date / Time Sulfa (Sulfonamide Allergy Hives Verified 04/11/16 15:37 Antibiotics) Date of admission: 08/12/18 19:40 Primary care physician: Morena Willams CNP Consults: 08/12/18 13:32 Consult to Nutrition [CONS] Routine Comment: Consulting Provider: NUTRITION Reason for Dietary Consult: MST Score Consult to Fiber Optic Splicer [CONS] Routine Reason for SW Consult: patient has multiple concerns. pt states that she wants to go to a alf, pt states that she does not feel safe at home and is scared of her son Shahriar 08/12/18 17:54 Consult to Occupational Therapy [CONS] Routine Comment: Evaluate, develop and implement POC Reason for Consult: Multiple falls Does patient have active BEDREST order?: No Is patient medically & hemodynamically stable?: Yes Patient assessed for mobility or mobilized this visit?: Yes Consult to Physical Therapy [CONS] Routine Comment: Evaluate, develop and implement POC Reason for Consult: Multiple falls Does patient have active BEDREST order?: No Is patient medically & hemodynamically stable?: Yes Patient assessed for mobility or mobilized this visit?: Yes - Constitutional Vitals: Temp Pulse Resp BP Pulse Ox 98.3 F 76 18 121/70 91 08/15/18 06:37 08/15/18 06:37 08/15/18 06:37 08/15/18 06:37 08/15/18 06:37 - Patient Status Disposition: Transfer SNF Condition: Fair - Discharge Instructions - Diet and Activity Activity: as per physical therapy Diet: diabetic diet
--- NOTE | 2018-08-15 08:54 | Physician Discharge Referral ---
ExtendedCare Referral Info Transfer To: [facility] Provider in Charge: Mann Provider in Charge after Transfer: PCP (Mann) - Diagnosis (1) Acute renal failure Priority: Primary Status: Resolved (2) Compression fx, thoracic spine Priority: Secondary Status: Acute (3) Hyperkalemia Priority: Secondary Status: Resolved (4) Neutrophilic leukocytosis Priority: Secondary Status: Resolved (5) DM (diabetes mellitus), type 2 Priority: Secondary Status: Chronic (6) Hypothyroidism Priority: Secondary Status: Chronic (7) Depression, major, recurrent, severe with psychosis Priority: Secondary Status: Chronic (8) Fall Priority: Secondary Status: Acute Prognosis: Fair Aware of Diagnosis: Patient, Family Aware of Prognosis: Patient, Family - Transfer Medications Prescriptions: FentaNYL PATCH [Duragesic] 25 mcg TD Q72H 30 Days #10 patch.td72 Tramadol HCl [Ultram] 50 mg PO Q4H PRN 7 Days #42 tab PRN Reason: Pain Home Medications: Levothyroxine [Synthroid] 100 mcg PO 0630 05/29/15 [History] Mirtazapine [Remeron] 15 mg PO HS #30 tablet 03/31/16 [Rx] Gabapentin [Neurontin] 800 mg PO TID 08/08/18 [History] Bydureon 2 mg SQ QWEEK 08/12/18 [History] Insulin Glargine,Hum.rec.anlog [Lantus Solostar] 15 unit SQ HS 08/12/18 [History] OLANZapine [Zyprexa] 15 mg PO DAILY 08/12/18 [History] Venlafaxine HCl [Venlafaxine HCl ER] 75 mg PO DAILY 08/12/18 [History] Acetaminophen [Tylenol] 500 mg PO Q4HWA tablet 08/15/18 [Rx] FentaNYL PATCH [Duragesic] 25 mcg TD Q72H 30 Days #10 patch.td72 08/15/18 [Rx] Lidocaine Patch [Lidoderm 5% patch] 1 each TP DAILY 30 Days adh..patch 08/15/18 [Rx] Methyl Salicylate/Menthol [Bengay] 1 appl TP DAILY 30 Days tube 08/15/18 [Rx] Tramadol HCl [Ultram] 50 mg PO Q4H PRN 7 Days #42 tab 08/15/18 [Rx] Allergies/Adverse Reactions: Allergy/AdvReac Type Severity Reaction Status Date / Time Sulfa (Sulfonamide Allergy Hives Verified 04/11/16 15:37 Antibiotics) - Respiratory Orders Smoking Cessation: Smoking cessation has been advised. For more information, call the [place] Tobacco Quit Line at 7-376-KIZR-NOW. - Lab Orders Lab Orders: Other (include drug levels w/frequency) (CBC with differential, BMP in 1 week and every 3 months. Hemoglobin A1c every 3 months.) - Rehabiliation Orders Rehab Potential: Fair Rehab Orders: Evaluation for Physical Therapy, Evaluation for Occupational Therapy - Diet Orders No Concentrated Sweets CERTIFICATION: I certify that the transfer of the above named patient to an Extended Care Facility is necessary for the continuing treatment of the diagnosis listed. The above information is true and accurate reflection of patient's current condition. Confidential - Redisclosure prohibited without a patient's written consent.
== END 2018-08-15 12:25 | DRG 683 ==
LOC: EMEROOPIK 09:54 → INPPIK 09:54
PROVIDERS: ADMIT Internal Medicine; ATTEND Internal Medicine